=== PATIENT | female | born 1995 | race Two or more races ===

== ENCOUNTER 2016-09-05 09:55 | Emergency (ER) | payer OTHER ==
[~2016-09-05] VITALS: Ht 172.7 cm; Wt 71.2 kg
[2016-09-05 10:46] LABS: UA SPECIFIC GRAVITY 1.015 (1.005-1.035); microscopic required? YES; urine erythrocyte 2+ (NEGATIVE)
[2016-09-05 10:51] LABS: BASOPHIL % 0.4 % (0-2); PLATELET COUNT 307 x10^3mcL (130-400); RED CELL DISTRIBUTION WIDTH 14.8 % (11.5-14.5)
[2016-09-05 14:45] VITALS: BP 102/79
== END 2016-09-05 14:30 | disposition home or self-care (01) ==
LOC: ED 09:55
DX: O26.851 Spotting complicating pregnancy, first trimester (principal); O20.0 Threatened abortion; N39.0 Urinary tract infection, site not specified; Z3A.08 8 weeks gestation of pregnancy